=== PATIENT | male | born 1960 | race Caucasian/White ===

== ENCOUNTER 2022-10-08 10:15 | Emergency (ER) | payer OTHER, MEDICAID, SELFPAY ==
[2022-10-08 10:17] VITALS: BP 200/97; PULSE 77; RESP 20; TEMP 36.1; O2SAT 100; BMI 42.7
--- NOTE | 2022-10-08 10:30 | EX.ED.DYSGE1 ---
HPI History of Present Illness Chief Complaint: Chest Other Informant: patient Onset/Context/Timing Onset: Yesterday Narrative Narrative: Patient states yesterday he coughed and had sudden onset severe discomfort in his right lower posterior ribs area of his back. He said this discomfort started more mild in that same area the day before this. When he coughed and the pain was sudden it almost felt like something popped inside. Now when he moves or takes a very deep breath, it is painful and he can feel something clicking and moving in there almost like he broke a rib. He had no direct trauma. He has never broken a bone before and does not have osteoporosis or osteopenia that he knows of, nor does he have any other bone problems that he is aware of. He recently had a respiratory infection, he had been coughing for a week or 2 and was prescribed antibiotics and prednisone by someone that he is finishing up now, he said that his illness is much better now. PFSH PFSH Allergy/AdvReac Type Severity Reaction Status Date / Time No Known Allergies Allergy Verified 10/08/22 10:19 Social History Smoking Status: Never smoker ROS ROS ED Constitutional Constitutional ED: Denies chills or fever(s) Eyes Eyes: Denies change in vision or diplopia ENT ENT ED: Denies rhinorrhea or sore throat Cardiovascular Cardiovascular: Denies chest pain, leg edema or palpitations Respiratory/Chest Respiratory/Chest: Reports cough and dyspnea Gastrointestinal Gastrointestinal: Denies abdominal pain, diarrhea, nausea or vomiting Genitourinary Genitourinary ED: Denies dysuria or hematuria Musculoskeletal Musculoskeletal: Reports as per HPI and back pain; Denies neck pain Integumentary Denies abscess or rash Neurologic Neurologic: Denies headache(s), paresthesias or weakness Psychiatric Psychiatric: Denies anxiety or suicidal thoughts EXAM Physical Exam Const Vital Signs: 10/08/22 10:17 10/08/22 10:23 Temperature 97 F L Temperature Source Temporal Pulse Rate 77 Respiratory Rate 20 H Respiratory Pattern Normal Blood Pressure 200/97 H Blood Pressure Mean 131 Pulse Ox 100 Oxygen Delivery Method Room Air Positive well nourished and well developed General Appearance ED: well developed and NAD HEENT Reports moist mucous membranes normocephalic and atraumatic Eyes PERRL and EOMs intact bilaterally Neck full ROM and supple Chest Wall inspection of chest normal and palpation of chest normal Resp normal respiratory effort and clear to auscultation bilaterally Resp Narrative: Equal breath sounds bilateral apices Cardio regular rate, regular rhythm and no murmurs GI non-tender and non-distended Auscultation: normoactive bowel sounds Palpation: soft Back/Spine no CVA tenderness Back/Spine Narrative: Nontender in the affected area and normal inspection without rash, no palpable subcutaneous emphysema. General Back: other FROM, but with discomfort in the right lower posterior ribs Extremity normal to inspection General Extremety ED: Negative for edema, pulses abnormal or tenderness General Extremity: Negative for edema or pulses abnormal Neuro oriented x3, CN's II-XII intact bilaterally, no sensory deficits noted and gait normal Sensorium / Orientation: awake and alert Motor Exam: strength 5/5 throughout Skin no rashes or lesions noted and no wounds MDM MDM MDM Narrative Medical decision making narrative: 7 view series of the right ribs including a PA chest that was repeated in order to get the entire area of lung huber in the frame is consistent on my interpretation with a right seventh rib fracture posteriorly. It is well away from the transverse process and spine. This is consistent with where the patient is hurting. There is no sign of pneumothorax. He does not have any right upper quadrant tenderness on exam. He does not have any hematuria or urinary symptoms, so I do not think he needs any other testing to look for an organ injury here. I offered analgesics and he declines here and prescription, I do recommend that he follow-up with his primary care doctor for couple reasons. #1, he may or may not need a bone scan or other testing to evaluate for abnormal mineralization of his bone. He does not appear to have a mass here or any type of evidence that this is a pathologic fracture. #2, his pressure is 200/97 I suspect this is because he is in pain, advised to follow-up for a recheck of that as well. Discharge Plan Triage Chief Complaint: Chest Other ED Provider: Roldan Cardoza Dx/Rx/DC Orders Clinical Impression: Fracture of one rib, right side, initial encounter for closed fracture, Single episode of hypertension Instructions: ED Rib Fracture Primary Care Provider: Fatoumata Garnica Referrals: Doctor,Your [Non-Staff] - (when able for repeat eval of blood pressure as well) Disposition Disposition: Home, Self Care
--- NOTE | 2022-10-08 10:36 | RAD_ITS ---
EXAM: XR RIGHT RIBS AND AP CHEST, 3 OR MORE VIEWS CLINICAL INDICATION: Right posterior lower rib pain with movement and cough. TECHNIQUE: Frontal and oblique views of the right ribs and frontal view of the chest. This report was created using [employer] report generation technology. COMPARISON: None. FINDINGS: LUNGS AND PLEURAL SPACES: Oblique linear subsegmental atelectasis below the right hilum. Discoid atelectasis in the left mid peripheral lung zone. No pneumothorax. No effusion. No suspicious infiltrates. HEART: Unremarkable. Cardiac silhouette not enlarged. MEDIASTINUM: Central airways and mediastinal contour are unremarkable. BONES/JOINTS: Acute complete fracture of the right posterior lateral eighth rib. RAD/Ribs Uni Min 3V w/PA Chest IMPRESSION: 1. Acute complete fracture of the right posterior lateral eighth rib. 2. No acute cardiopulmonary pathology. Electronically Signed: Edward Arzate MD at 11:18 EDT ,
== END 2022-10-08 11:09 | disposition home or self-care (01) ==
PROVIDERS: Emergency Provider Emergency Medicine; PCP Physician Assistant; Visit Provider Emergency Medicine
DX: S22.31XA Fracture of one rib, right side, initial encounter for closed fracture (principal); I10 Essential (primary) hypertension; X58.XXXA Exposure to other specified factors, initial encounter
CPT/HCPCS: 71101; 99283